=== PATIENT | female | born 1950 | race Caucasian/White ===

== ENCOUNTER 2018-04-26 10:58 | Day surgery (SDC) | payer BC ==
[~2018-04-26 10:58] MED LIST: ACETAMINOPHEN 1,000 MG/100 ML BTL IV ONE; CEFAZOLIN 2 Gram 2 GM/50 ML BAG IVPB ONE
[2018-04-26] MEDS ORDERED: BUPIVACAINE 0.5% W/EPI MPF 30 ML VIAL IVP ONE (10:59)
[2018-04-26] MEDS ORDERED: SEVOFLURANE 250 ML INH ONE (10:59)
[2018-04-26] MEDS ORDERED: LIDOCAINE 2% MDV (20MG/ML) 20ML VIAL IV ONE (10:59)
[2018-04-26] MEDS ORDERED: PROPOFOL 10 MG/ML VIAL IV ONE (10:59)
[2018-04-26] MEDS ORDERED: ALFENTANIL HCL 500 MCG/1ML, 2ML AMP IV ONE (10:59)
[2018-04-26 13:04] LABS: BLOOD UREA NITROGEN 17 mg/dL (8-23); CREATININE 0.9 mg/dL (0.5-0.9); EST GLOMERULAR FILTRATION RATE > 60 mL/min; GLUCOSE,RANDOM 106 mg/dL (74-109)
[2018-04-26] MEDS ORDERED: MORPHINE SULFATE 4 MG/ML VIAL ONE (13:10)
--- NOTE | 2018-04-29 13:54 | Operative Note ---
DATE OF SURGERY: 04/26/2018 PREOPERATIVE DIAGNOSIS: INTERNAL DERANGEMENT OF THE LEFT KNEE. POSTOPERATIVE DIAGNOSES: 1. TEAR OF THE POSTERIOR HORN OF THE MEDIAL AND LATERAL MENISCI. 2. DIFFUSE SYNOVITIS. 3. GRADE 3 CHONDROMALACIA PATELLOFEMORAL COMPARTMENT. 4. LARGE CHONDRAL LESION OF THE MEDIAL FEMORAL CONDYLE, MEDIAL ASPECT WITH LOOSE MARGINAL CARTILAGE. PROCEDURE: 1. LEFT KNEE ARTHROSCOPY WITH PARTIAL MEDIAL AND LATERAL MENISCECTOMIES. 2. LEFT KNEE ARTHROSCOPY WITH COMPLETE SYNOVECTOMY. 3. LEFT KNEE ARTHROSCOPY WITH CHONDROPLASTY OF THE MEDIAL COMPARTMENT AND THE PATELLOFEMORAL COMPARTMENT. STAFF SURGEON: DR. KENNY RUBIO ANESTHESIA: GENERAL. PREPARATION: CHLORAPREP. INDIVIDUAL CONSIDERATIONS: NONE. PROCEDURE: The patient was taken to the Operating Room and placed supine on the operating table. She had a successful induction of a general anesthetic. Her left lower extremity was prepped and then draped in the usual fashion. The patient had a superior lateral inflow cannula placed. The skin was infiltrated with 0.5% Marcaine with Epinephrine prior. A large clear effusion was drained. The knee was inflated with normal saline. An inferior medial and an inferior lateral portal were made in a similar fashion. The arthroscope was introduced through the inferior lateral portal up into the pouch. The patellofemoral compartment showed diffuse synovitis and grade 3 changes throughout the patella and the notch with some exposed bone in the notch. Complete synovectomy was performed in the pouch and both gutters. No loose bodies were seen and I smoothed off the loose cartilage in the patellofemoral compartment. Medially, she had basically a split tear involving the posterior horn of the medial meniscus and this was debrided back to a stable rim with basket forceps and a shaver. The tibial plateau looked good. She had a large chondral lesion, which looked like about the size of an elongated half dollar on the medial side of the femoral condyle just medial to the midline with loose marginal cartilage, which was debrided. In the notch, the cruciates were normal. Laterally, she had a large flap tear involving the posterior and lateral horn of the lateral meniscus, which was debrided back to a stable rim with basket forceps and a shaver. The articular cartilage looked decent. After irrigation, the portals were closed with fleix and 20 mL of 0.25% plain Marcaine with Epinephrine along with 4 mg of Morphine and 40 mg of Depo-Medrol were injected into the knee and a sterile Bulkee compressive dressing was applied. The patient tolerated the procedure well. Needle and sponge counts were correct. Estimated blood loss was minimal and she was taken back to Recovery in good condition. There were no complications. JOB NUMBER: [id number] MTDD
== END 2018-04-26 15:15 | disposition home or self-care (01) ==
LOC: SUR 10:58
PROVIDERS: ATTEND Orthopaedic Surgery
DX: S83.282A Other tear of lateral meniscus, current injury, left knee, initial encounter (principal); S83.242A Other tear of medial meniscus, current injury, left knee, initial encounter; M65.9 Synovitis and tenosynovitis, unspecified; M22.42 Chondromalacia patellae, left knee; M24.10 Other articular cartilage disorders, unspecified site; J44.9 Chronic obstructive pulmonary disease, unspecified; I10 Essential (primary) hypertension; E78.00 Pure hypercholesterolemia, unspecified; R60.9 Edema, unspecified; H35.30 Unspecified macular degeneration; H54.7 Unspecified visual loss; Z86.73 Personal history of transient ischemic attack (TIA), and cerebral infarction without residual deficits; Z90.2 Acquired absence of lung [part of]
CPT/HCPCS: 29880; 29876; 01400; 80048; J0690; J2270